=== PATIENT | female | born 1970 | race American Indian/Alaskan Native ===

== ENCOUNTER 2017-08-20 07:17 | Emergency (ER) | payer BC, OTHER ==
[~2017-08-20] VITALS: Ht 157.5 cm; Wt 99.8 kg
[2017-08-20 07:17] VITALS: BP 140/90
[2017-08-20 08:36] LABS: Basophils # (auto) 0.1 uL; Basophils % (auto) 0.7 % (0.0-2.0); Eosinophils # (auto) 0.2 uL; Hematocrit 47.7 % (36.0-46.0); Hemoglobin 16.2 g/dL (12.2-16.2); Lymphocytes # (auto) 1.4 uL; Lymphocytes % (auto) 8.9 % (10.0-50.0); Mean Corpuscular Hemoglobin 30.9 pg (28.0-32.0); Mean Corpuscular Volume 90.9 fL (80.0-100.0); Mean Platelet Volume 8.3 fL (6.9-10.8); Monocytes # (auto) 0.9 uL; Monocytes % (auto) 5.9 % (0.0-12.0); Neutrophils % (auto) 83.5 % (37.0-80.0); Platelet Count (auto) 217 10^3/uL (140-450); White Blood Cell 15.6 10^3/uL (4.4-10.8)
[2017-08-20] MEDS ORDERED: PIPERACILLIN-TAZOB 3.375GM 50 ML IV ONE (08:45)
[2017-08-20] MEDS ORDERED: metroNIDAZOLE 500MG/100ML 100 ML IV ONE (08:45)
[2017-08-20 09:00] LABS: Albumin 3.6 g/dL (3.4-5.0); BUN/Creatinine Ratio 20.5; Calcium 8.7 mg/dL (8.5-10.1); Total Protein 8.1 g/dL (6.4-8.2)
[2017-08-20] MEDS ORDERED: ONDANSETRON HCL 4 MG/2 ML VIAL IV ONE (09:45)
[2017-08-20] MEDS ORDERED: MORPHINE SULFATE 4 MG/ML SYRG IV ONE (09:45)
== END 2017-08-20 14:27 | disposition left against medical advice (07) ==
LOC: ER 07:17
DX: K57.32 Diverticulitis of large intestine without perforation or abscess without bleeding (principal); Z53.29 Procedure and treatment not carried out because of patient's decision for other reasons
CPT/HCPCS: 36415; 74176; 80053; 83605; 85025; 87040